=== PATIENT | male | born 1965 | race Caucasian/White ===

== ENCOUNTER 2016-06-27 11:01 | Outpatient (CLI) | payer MEDICARE, OTHER ==
[2015-08-01 21:41] VITALS: BP 159/83
[2016-06-27 11:18] LABS: BASOPHILS % 0.4 (0.0-1.5); EOSINOPHILS % 2.5 % (0.0-6.8); LYMPHOCYTES # 3.2 # k/uL (0.6-4.0); MEAN CORPUSCULAR HEMOGLOBIN 27.4 pg (28.0-34.0); MONOCYTES # 0.4 # k/uL (0.0-0.9); MONOCYTES % 4.1 % (0.0-11.0); NEUTROPHILS # 4.9 # k/uL (1.4-7.7)
[2016-06-27 11:53] LABS: eGFR (African) > 60; eGFR (Non-African) > 60
== END 2016-06-27 11:02 ==
LOC: LAB 11:01
PROVIDERS: ATTEND Family Medicine
DX: Z51.81 Encounter for therapeutic drug level monitoring (principal); I10 Essential (primary) hypertension; M13.0 Polyarthritis, unspecified
CPT/HCPCS: 36415; 80053; 85025; 85651

== ENCOUNTER 2017-08-27 13:55 | Emergency (ER) | payer OTHER ==
--- NOTE | 2017-08-27 14:21 | ED Physician Documentation ---
Sore Throat/Dental Pain - HISTORIAN Historian: patient - HPI Stated Complaint: Dental pain Chief Complaint: Dental Pain Additional Information: 3-4days of quiana pain. Needs antibiotics. Most of teeth extracted i nthe past. Trying to see dentist to have remainder extracted and dentures made. Associated Symptoms: denies: fever - ROS CONST: no problems - PAST HX Past History: other (above) Other History: cardiac disease (and stents 2 years ago. HLD. COPD) Allergies/Adverse Reactions: Allergies Allergy/AdvReac Type Severity Reaction Status Date / Time No Known Allergies Allergy Verified 08/27/17 14:11 Home Medications: Ambulatory Orders Medication Instructions Recorded Buprenorphine HCl/Naloxone HCl 1 appl SL DIRECTED 08/01/15 [Suboxone 8 mg-2 mg Sl Film] Quetiapine Fumarate [Seroquel] 1 tab PO HS 08/01/15 Amoxicillin 500 mg PO Q8 #30 capsule 08/27/17 - SOCIAL HX Smoking History: cigarettes - FAMILY HX Family History: No - VITAL SIGNS Vital Signs: Vital Signs Temp Pulse Resp BP Pulse Ox 98.4 F 81 20 162/99 95 08/27/17 14:08 08/27/17 14:08 08/27/17 14:08 08/27/17 14:08 08/27/17 14:08 - REVIEWED ASSESSMENTS Nursing Assessment Reviewed: Yes Vitals Reviewed: Yes Dental Pain Physical Exam - EXAM General Appearance: no acute distress, alert Head/Neck: head nml inspection Eyes: eyes nml inspection Mouth/Throat: lips nml, pharynx nml, voice nml, no drooling, other (#17/17, eroded to gum line. Exquisitely tender lingual gingiva at this tooth) Ear/Nose: nml inspection Respiratory: no resp. distress Extremities: nml ROM (gait and stance) Skin: warm/dry, normal color Neuro/Psych: No: weakness Discharge Clincal Impression: Dental abscess Prescriptions: Amoxicillin 500 mg PO Q8 #30 capsule Referrals: Primary Doctor,No [Primary Care Provider] - 2 Days Condition: Good Disposition: 01 HOME, SELF-CARE Decision to Admit: NO Decision Time: 14:22
[2017-08-27 14:25] VITALS: BP 162/99
== END 2017-08-27 14:20 | disposition home or self-care (01) ==
LOC: ED 13:55
DX: K04.7 Periapical abscess without sinus (principal)

== ENCOUNTER 2018-09-03 09:48 | Outpatient (CLI) | payer OTHER ==
--- NOTE | 2018-09-03 10:30 | Diagnostic Imaging Report ---
ARIANNA GORDON [facility] [address] [facility] [address] [place], [place]. [address] Report Submission Date: September 03, 2018 10:13:33 AM CDT Patient Study Name: FELICIA MARROQUIN Date: September 03, 2018 9:54:00 AM CDT Modality Type: DX Gender: M Description: KNEE 3 VIEWS : 65 Institution: [facility] Physician: ARIANNA GORDON Examination: Plain film right knee History: CHRONIC BILATERAL KNEE PAIN AND SWELLING. Findings: 3 views of the right knee demonstrates normal cortical margins. No fracture. No dislocation. Mild patellar spurring. No joint effusion. No soft tissue irregularity. Impression: Mild patellar spurring. No acute appearing osseous abnormality Electronically signed on September 03, 2018 10:13:33 AM CDT by: Edilberto HARRELL
--- NOTE | 2018-09-03 10:31 | Diagnostic Imaging Report ---
ARIANNA GORDON [facility] [address] [facility] [address] [place] [address]. [id number] Report Submission Date: September 03, 2018 10:14:29 AM CDT Patient Study Name: FELICIA MARROQUIN Date: September 03, 2018 9:49:22 AM CDT Modality Type: DX Gender: M Description: KNEE 3 VIEWS : 65 Institution: [facility] Physician: ARIANNA GORDON Examination: Plain film left knee History: CHRONIC BILATERAL KNEE PAIN AND SWELLING. Findings: 3 views of the left knee demonstrates normal cortical margins. No fracture. No dislocation. Mild patellar spurring. Mild medial joint space narrowing. No joint effusion. No soft tissue irregularity. Impression: Mild patellar spurring. No acute appearing osseous abnormality. Electronically signed on September 03, 2018 10:14:29 AM CDT by: Edilberto HARRELL
== END 2018-09-03 09:50 ==
LOC: RAD 09:48
PROVIDERS: ATTEND Registered Nurse
DX: M77.8 Other enthesopathies, not elsewhere classified (principal); M25.561 Pain in right knee; M25.562 Pain in left knee
CPT/HCPCS: 73562

== ENCOUNTER 2018-12-25 09:25 | Outpatient (CLI) | payer OTHER ==
--- NOTE | 2018-12-31 08:24 | CONSULTATION REPORT ---
CHIEF COMPLAINT: Bilateral chronic knee pain. HISTORY OF PRESENT ILLNESS: This 53-year-old white male, accompanied by his today, is seen at the request of Jeanie Saravia APRN in [place], [place] with [facility], for recommendations regarding treatment of bilateral knee pain, left worse than right. The patient presents having undergone MRI scans of his knees as well as plain film x-rays. The patient does indicate that this is a gradual onset of the knee pain, which is constant, onset of about a year's duration. He does not recall an injury or event that started the knees hurting. The knee pain is located on the front and inside. Rates the pain as dull and sharp at times. Again, he wants to reference his left knee primarily in regard to description. He describes the pain as moderate, slightly improved compared to what it has been certain days, but overall no better. He does rate his pain at rest as 3/10, pain with activity is 6/10. He does report decrease in knee motion in the presence of knee swelling and stiffness. He indicates his knee pain is worse with activity, weightbearing, walking, pivoting, cutting, climbing stairs, descending stairs, squatting, kneeling, rising after sitting, getting in and out of a car or chair, putting on shoes and socks, standing and any weightbearing. The knee pain is better with nonsteroidal medications along with rest. The pain has progressed with activities of daily living. He does have night pain, which awakens him at night. He does not report a fear of falling. He does experience clicking. He does note [id number] difficulty in walking and getting around. He has tried using a knee brace. He is not taking narcotic pain medication for this problem. 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 He says he has been clean altogether for the last three and a half years. He has tried nonsteroidal medications for about the last year. He has used an elastic knee sleeve and has had a couple of different knee immobilizers which he wears from time to time that help keep the knee from hurting so much. He does not report leg pain. He does report back pain. PAST MEDICAL HISTORY: He does report having had two cardiac stents placed in 2016 at the [facility]. He also reports having had multiple dental extractions three to four years ago. SOCIAL HISTORY: The patient no longer smokes cigarettes, but does have an approximate 70-pack year history, quit three years ago after smoking two packs per day for about 35 years. He does currently chew tobacco. He denies alcohol use currently. Does report history of alcohol abuse. He does report history of illicit drug use and/or prescription drug abuse. He is on disability for his lower back, reports he has been on disability for 12 to 13 years, had a surgery in which hardware was placed to address an L4-L5 problem about 10 years ago. His initial injury occurred when he was lifting drywall. His is Agnes Madrigal. ALLERGIES: The patient reports no known drug allergies. MEDICATIONS: He lists his medications to include Nexium, metoprolol, aspirin, atorvastatin, Seroquel, Ambien, Symbicort, Suboxone, naproxen and Tylenol. FAMILY HISTORY: The patient's family history is negative. REVIEW OF SYSTEMS: He is noted on review of systems to have observed some weight gain, shortness of breath with activity, chronic cough, history of pneumonia, heartburn, constipation, bipolar disease/panic attacks. PHYSICAL EXAMINATION: Vital Signs: Reveal pulse 71, respiratory rate 16, blood pressure 142/85, oxygen saturation is 94% on room air. His height is 5 feet 11 inches with a weight of 230 pounds with a BMI of 32. HEENT: Normocephalic. Neck: Supple. Lungs: Clear to percussion bilaterally. Cardiovascular: Regular rate and rhythm with pulses present and symmetric posterior tibialis and radial aspect of wrist bilaterally. Neurovascular: Reveals some decreased sensation lateral aspect of the left foot reported per patient. Abdomen: Soft, nontender. Extremities: There is mild limitation in range of motion of the left knee, has range of approximately 10 degrees to 90 degrees of flexion readily, can get the left knee to flex to approximately 100 degrees with a little coaxing. He does have tenderness along the medial and lateral joint lines with some exacerbation of discomfort with both varus and valgus stress on flexing and extending the left knee, more notable with valgus stress actually on the left, more discomfort with varus stress on the right, it is noted. The right knee does range somewhat better, full extension to approximately 110 degrees of flexion with little effort. There is mild effusion left knee, minimal effusion on the right. The patient says the left knee sometimes swells a lot more. There is no erythema left knee. Negative Evelina, negative anterior/posterior drawer bilaterally. There is decreased quadriceps tone on the left versus right. Mild decreased quadriceps strength left versus right is readily evident. The patient ambulates with a limp. X-RAYS: Plain film x-rays of the knees obtained on 09/03/2018 are noted to reveal on both knees, mild patellar spurring with no acute appearing osseous abnormality. There is mild medial joint space narrowing noted on the left. I note, as well, on my review of the films, some minimal medial joint space narrowing suggested on the right as well with some subchondral sclerotic change, mild, along the medial tibial plateau regions bilaterally. MRI: The patient also is noted on MRI scans obtained at [facility] in [place], [place] on 11/16/2018 to have evidence of on the left knee, oblique tear involving superior aspect of posterior horn of medial meniscus, degenerative intrameniscal signal changes involving posterior horn of lateral meniscus, small joint effusion with small osteochondral defect along the distal femoral condyle medially. There was no evidence of acute ligamentous or tendinous injury. There is a small joint effusion. Medial and lateral patellar retinaculum were intact. There was mild thinning of the patellar articular cartilage without evidence of chondromalacia. There was moderate degenerative thinning of the distal femoral articular cartilage with a small area of increased signal change in the medial aspect of the medial tibial plateau. There are also tiny areas of increased signal change within the distal medial femoral condyle and lateral tibial plateau with marked eburnation of the distal femoral articular cartilage and medial joint space narrowing. The patient's right knee noncontrast MRI obtained 11/16/2018 at [facility] in [place], [place] revealed a horizontal tear of the posterior horn of the medial meniscus, which extended into the inferior articular surface. The patient had a small joint effusion, medial and lateral patellar articular cartilage and retinaculum intact. There was a small degenerative cyst noted at the insertion of the anterior cruciate ligament and there was mild medial joint space narrowing. There were degenerative intrameniscal signal changes involving the posterior horn of the lateral meniscus. Anterior horns appeared intact. The patient had no focal osteochondral defect identified. No evidence of acute ligamentous or tendinous abnormality was noted. IMPRESSION: Symptomatic left knee pain with medial meniscus tear, osteochondral defect medial femoral condyle, osteoarthritic disease left knee. RECOMMENDATIONS: Options discussed with the patient, I recommended arthroscopy of the left knee which he voiced desire to undergo. I did discuss the pros and cons of arthroscopy, expectations and limitations, alternatives of treatment available, and the possible complications which can and do occur in some individuals. These are listed to include but are not limited to , amputation, myocardial infarction, stroke, life and/or limb threatening blood clot, failure to relieve pain, worst pain, need to undergo additional surgical procedures in the short term or senior care, persistent or worse gait pattern/use of the knee/function of the knee. I did advise him that his active participation in therapy is required in order to avoid the high likelihood of a poor result. I did advise him that his Medicaid status does put him at increased risk for inability to obtain supervised physical therapy which is covered. I did advise him that his active participation in and self pay for appropriate supervised physical therapy visits is essential if he hopes to obtain a satisfactory or better result from the surgery. I did advise him that home program is appropriate in conjunction with the supervised therapy program but is not a replacement for it. He and both acknowledged this. Both parties voiced understanding and satisfaction with responses to all of their questions. I did discuss a time frame away from use of the lower extremities on an everyday basis and the usual/expected and some of the unexpected time frames which can occur in getting over this type of surgery. I did remind him that he does have more than one type of problem in that left knee and that arthroscopy is not expected to be a "cure all" in that, overall, I would expect arthroscopy to be something that would buy him time with regard to use and some degree of pain relief in that left knee, as I expect that at some point down the road, hopefully years or decades, he will end up requiring knee replacement. He acknowledges and accepts this. I did advise him, his idea as well, that we can consider arthroscopy for the right knee later on after he has completed the left knee arthroscopy and feels that he is doing well following that intervention. Schedule is arranged, per patient request, for left knee arthroscopy. Anticipate use of [employer] nikolas and [place] instrumentation with [place] rep availability intraoperatively. Liam Mendez MD /[employer] [id number] Job #[id number] MTDD
== END 2018-12-25 11:00 ==
LOC: ORHTO 09:25
PROVIDERS: ATTEND Orthopaedic Surgery
DX: S83.242A Other tear of medial meniscus, current injury, left knee, initial encounter (principal); M95.8 Other specified acquired deformities of musculoskeletal system; M17.12 Unilateral primary osteoarthritis, left knee
CPT/HCPCS: 99202; G0463